=== PATIENT | male | born 1975 | race Two or more races ===

== ENCOUNTER → 2018-10-24 | Emergency (ER) | payer OTHER ==
[~2018-10-24] VITALS: Ht 172.7 cm; Wt 112.0 kg
[~2018-10-24] MED LIST: ATENOLOL25 MG; CATAPRES0.1 MG; CELEBREX100 MG; CLONAZEPAM0.5 MG; DEPAKOTE ER250 MG; KETO10TA2 PO; LOSARTAN-HCTZ1 EAC2; LYRICA100 MG; MEDROL8 MG PO; ZOLOFT50 MG
== END | disposition home or self-care (01) ==
LOC: ER 20:52
DX: G58.8 Other specified mononeuropathies (principal)

== ENCOUNTER 2022-10-28 19:06 | Emergency (ER) | payer OTHER ==
[~2022-10-28] VITALS: Ht 172.7 cm; Wt 99.3 kg
[2022-10-28] MEDS ORDERED: OMEPRAZOLE MAGN20 MG PO (22:12)
== END 2022-10-28 22:19 | disposition home or self-care (01) ==
LOC: ER 19:06
DX: R10.84 Generalized abdominal pain (principal); R19.7 Diarrhea, unspecified; Z88.0 Allergy status to penicillin; I10 Essential (primary) hypertension; G47.33 Obstructive sleep apnea (adult) (pediatric)